=== PATIENT | female | born 1990 | race Caucasian/White ===

== ENCOUNTER 2017-01-17 05:04 | Day surgery (SDC) | payer MEDICAID ==
[2017-01-14 11:25] LABS: BASOPHILS 0.4 % (0-2); EOSINOPHILS 2.2 % (0-7); HEMATOCRIT 36.8 % (36.0-48.0); HEMOGLOBIN 11.7 g/dL (12-16); IMMATURE GRANULOCYTES 0.2 % (0-5); LYMPHOCYTES 41.2 % (15-50); MCHC 31.8 g/dL (31.0-37.0); MEAN PLATELET VOLUME 9.7 fL (7.4-10.4); PLATELET COUNT 305 10x3/uL (130-400); RBC 4.33 10x6/uL (4.00-5.40); RDW 13.5 % (11.5-14.5); WBC 5.6 10x3/uL (4.8-10.8)
[2017-01-17 06:37] VITALS: BP 112/60; BMI 44.6
[2017-01-17 07:06] LABS: HCG URINE NEGATIVE (NEGATIVE)
--- NOTE | 2017-01-17 14:14 | NUR ---
1340- REPORT RECEIVED FROM ROSEMARIE Ellis RN. PT SUPINE WITH HOB ELEVATED. PILLOW ON ABD FOR SPLINTING IF NEEDED. VSS. 1350-2.5L O2 NC, SAT > 92%. PAIN 10/10, BUT O2 SAT A FACTOR AT THIS TIME. WILL CONTINUE TO MONITOR. 1410- CONTINUES WITH ICE CHIPS, NO NAUSEA AT THIS TIME. PARTNER AT BEDSIDE.
--- NOTE | 2017-01-17 15:41 | NUR ---
1420- VSS. CONTINUES ON 2L O2 NC. DROWSY. 1450- PAIN 01/25. DR. ROSADO. TELEPHONE ORDERS RECEIVED, WILL ADMINISTER. PT TO BE ADMITTED PER 1515- PAIN MEDICATION ADMINISTERED. 1540- REPORT GIVEN TO RACHELLE DIAS RN. PT TO BE TRANSFERRED VIA WHEELCHAIR.
--- NOTE | 2017-01-17 16:22 | NUR ---
1615- PT TO 1218. DR. MANN AT BEDSIDE. RACHELLE AT BEDSIDE WELL.
--- NOTE | 2017-01-17 16:30 | NUR ---
PT WAS RECEIVED BY WHEELCHAIR FROM OUTPATIENT. UNABLE TO CONTROL HER PAIN WITH ORAL MEDS AT THIS TIME. SHE WAS TRANSFERRED TO HER BED. SIDE RAILS UP X 2 . CALL LIGHT IN REACH. BED IS LOW. GEN- AWAKE AND ALERT. LUNGS- CLEAR. HEART- RRR. ABD WITH 3 SMALL LAP INCISIONS NOTED WITH STERI STRIPS. ALL STRIPS WITH BLOOD NOTED. BLEEDING SEEMS TO HAVE STOPPED. JARRETT CATH INTACT. PT REQUESTED IT BE REMOVED. JARRETT REMOVED. OK'D BY DR MANN. SCD'S REMOVED BECAUSE PT IS UP AND GOING TO [facility].
--- NOTE | 2017-01-17 17:34 | NUR ---
toradol given iv, r hand. pt rates pain as a 7/10
--- NOTE | 2017-01-17 17:42 | NUR ---
PT VOIDED X 1. NO DIFFICULTY.
--- NOTE | 2017-01-17 19:40 | NUR ---
AWAKE DURING BEDSIDE ROUNDING. INTRODUCED SELF. PT UP TO THE BATHROOM VOIDED AND BACK TO BED. V/S TAKEN. ASSESSMENT DONE. STATUS POST LAPAROSCOPIC RSO. IVF--LR TO R HAND. IV SITE OK.
--- NOTE | 2017-01-17 19:46 | NUR ---
PAIN LEVEL 10 FROM ABD LAP INCISION. PERCOCET 5/325 2tabs PO GIVEN FOR PAIN CONTROL.
[2017-01-17 19:48] VITALS: BP 126/59
--- NOTE | 2017-01-17 20:00 | NUR ---
OFF THE UNIT VIA WHEELCHAIR WITH SPOUSE.
--- NOTE | 2017-01-17 20:15 | NUR ---
BACK IN HER ROOM.
--- NOTE | 2017-01-18 00:28 | NUR ---
TORADOL 30mg IV GIVEN ORDERED EVERY 8hrs FOR BREAK-THROUGH PAIN. V/S STABLE.
[2017-01-18 00:33] VITALS: BP 109/50
--- NOTE | 2017-01-18 04:10 | NUR ---
EYES CLOSED. LEFT UNDISTURBED.
--- NOTE | 2017-01-18 06:00 | NUR ---
OFF THE UNIT VIA WHEELCHAIR WITH SIGNIFICANT OTHER (SPOUSE?). SLEPT FDAIRLY DURING THE NIGHT. CONTINUING PLAN OF CARE. ANTICIPATES DISCHARGE TODAY.
[2017-01-18 07:15] VITALS: BP 120/64
--- NOTE | 2017-01-18 07:30 | NUR ---
PT IS SITTING UP IN BED. SHE STATES THAT SHE IS READY TO GO HOME. DR MANN HAS BEEN TO SEE HER AND OK'D DISCHARGE. SALINE LOCK NOTED R HAND. D'CD WITH TIP INTACT. GEN- AWAKE AND ALERT. LUNGS- CLEAR. HEART- RRR. ABD- SOFT WIT BS+. 3 SMALL LAP INCISIONS WITH STERI STRIPS WITH DRIED BLOOD NOTE. INSTRUCTED PT TO LEAVE THESE ON UNTIL THEY START TO FALL OFF. BED IS LOW, SIDE RAILS UP X 2 AND CALL LIGHT IN REACH.
[2017-01-18] MEDS ORDERED: PERCOCET 7.5/321 TAB PO (08:14)
--- NOTE | 2017-01-18 08:15 | NUR ---
PT AND UP AMBULATING IN [address]. TOLERATING WELL.
[2017-01-18] MEDS ORDERED: IBUPROFEN600 MG PO (08:16)
--- NOTE | 2017-01-18 08:42 | NUR ---
PT DISCHARGED HOME. DISCHARGE INSTRUCTIONS DISCUSSED AND HANDOUTS GIVEN. PT TAKEN TO FRONT DOOR BY WHEELCHAIR TO VEHICLE. PT REQUESTED PAIN MED. GIVEN PRIOR TO DISCHARGE.
--- NOTE | 2017-01-24 07:03 | OP ---
PATIENT NAME: ADRIÁN MICHELLE MEDICAL RECORD: [id number] :89 LOCATION:D[facility] ADMISSION DATE: SURGEON: VICTORIA MANN MD DATE OF OPERATION: 01/18/2017 PREOPERATIVE DIAGNOSES: 1. Pelvic pain. 2. Dysfunctional bleeding. POSTOPERATIVE DIAGNOSES: 1. Pelvic pain. 2. Dysfunctional bleeding. PROCEDURES: 1. Diagnostic laparoscopy. 2. Lysis of adhesions. 3. RSO. 4. Laparoscopic subtotal hysterectomy. 5. Left salpingectomy. SURGEON: Victoria Mann MD ANESTHESIA: Dr. Roca. ANESTHETIC: General anesthetic with endotracheal intubation. FINDINGS: Omentum is adhesed to the midline and to the uterus. There is small bowel adhesed to the uterus as well. The omental adhesions are dense and throughout the midline. Bowel adhesions were filmy. Uterus is unremarkable. Tubes were interrupted with Filshie and with clips. Ovaries are unremarkable. SPECIMENS REMOVED: Right tube with ovary, left tube uterus without cervix. SPECIMENS DISPOSITION: Pathology. ESTIMATED BLOOD LOSS: 150 cc. FLUIDS: 1000 cc of lactated Ringer's. URINE OUTPUT: 350 cc of clear urine. COMPLICATIONS: None. DRAINS: Negron to gravity, discontinued the same day of surgery. INDICATIONS: The patient is a 26-year-old female using tubal ligation for her control with intense dysmenorrhea and cyclic menorrhagia. The patient has been attempted on conservative therapy and wishes for definitive treatment. The patient understands risks and benefits of the procedure as well as its limitations. Because of the chronic right-sided pelvic pain, the patient desires removal of right ovary and tube. DESCRIPTION OF PROCEDURE: After informed consent was assured, the patient was taken to the operating room where anesthetic was obtained without difficulty. The patient was placed in Mihir stirrups and prepped and draped in the usual OPERATIVE REPORT [id number] ADRIÁN MICHELLE sterile fashion. An incision is made at the umbilicus to accommodate a 5-mm trocar which was inserted without difficulty. Upon placing the camera in the abdomen, the omentum was immediately encountered. Accessory ports are now placed in the right and left side. Using a gyrus coagulation cutter as well as EndoShears, the adhesions were taken down across the midline until the uterus is adequately visualized. The filmy adhesions were taken down bluntly off the uterus. The right tube was now elevated and infundibulopelvic ligament of the right ovary identified. The ligament was compressed, coagulated and until the ovary was freed. Dissection was carried out underneath the ovary and tube across the round ligament and the anterior leaf of the broad ligament was opened and the dissection was carried to the midline. The posterior leaf was opened. The vessels skeletonized on the right side, compressed, coagulated, and at the level of the internal os. This was repeated on the contralateral side. Again, this time the left tube was elevated and the tube was removed from its attachments freeing it from the ovary. The dissection was carried down across the uterine ovarian ligament and the round ligament. The broad ligament is opened anteriorly and the bladder flap fully developed. Posterior leaf was opened and the vessels skeletonized, compressed, coagulated, and on the left side. Uterus is now removed with Bovie. Using a Bovie hook in a setting of 40 zaman, the uterus is removed from its attachment to the cervix at the level of the uterine arteries. Once this has been performed, a wider incision is made on the right lower quadrant where an accessory port has already been placed and the PlasmaSORD is inserted. The right tube and ovary is grasped and pulled through the morcellator and passed off the field. The uterus is now removed in several steps. After removal of the uterus, the pelvis is inspected and straight portions, picked up. The pelvis was copiously irrigated and Trendelenburg position reduced to a reverse Trendelenburg position. Pelvis is now cleared of all fluid and debris. Bowel swept free of the pelvis and upon inspection, no further portions of uterus were identified. The endocervical canal was cauterized. dtp operator inserts hand into the vagina and the Bovie device is inserted to the tip and activated. After the canal has been cauterized, Interceed is now placed into the abdomen and covers the cervical stump. Accessory ports were removed under direct visualization in both the left and right lower quadrants. The skin was reapproximated and sterile dressing applied. The primary port is removed. Again, a stitch is applied and sterile dressing covers the incision site. Sponge, lap, and needle counts correct times #2. The patient went to recovery room in stable condition. 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
== END 2017-01-18 08:50 | disposition home or self-care (01) ==
LOC: OBSVTIME → D.OPS 05:04 → D.PAN 08:15 → D.OPS 16:34 → D.WS 16:34 → OBSVTIME 16:35 → D.OPS 01-18 08:50 → D.WS 01-18 08:50
PROVIDERS: Obstetrics & Gynecology
DX: N80.0 Endometriosis of uterus (principal); N83.01 Follicular cyst of right ovary; N73.6 Female pelvic peritoneal adhesions (postinfective); N93.8 Other specified abnormal uterine and vaginal bleeding; N94.6 Dysmenorrhea, unspecified; Z01.812 Encounter for preprocedural laboratory examination

== ENCOUNTER 2017-02-13 11:32 | Emergency (ER) | payer MEDICAID ==
[~2017-02-13 11:32] MED LIST: IBUPROFEN600 MG PO; PERCOCET 7.5/321 TAB PO
== END 2017-02-13 13:13 | disposition home or self-care (01) ==
LOC: D.ER 11:32
DX: L25.9 Unspecified contact dermatitis, unspecified cause (principal)